=== PATIENT | female | born 1990 | race Caucasian/White ===

== ENCOUNTER 2019-11-13 20:26 | Outpatient (CLI) | payer BC ==
[~2019-11-13] VITALS: Ht 157.5 cm; Wt 82.7 kg
--- NOTE | 2019-11-13 20:10 | NUR ---
2009- PT PRESENTS TO [facility] COMPLAINING OF LEAKING FLUID, AMBULATORY TO ROOM LR3, CHANGED INTO GOWN. 2016- EFM X2 APPLIED, COVID SCREENING NEGATIVE, PT STATES SHE HAS BEEN HAVING SOME INCONSISTENT CONTRACTIONS AND HER PANTIES WERE WET EARLIER, IS NOT CURRENTLY HAVING TO WEAR A PAD. STATES SHE IS FEELING HER BABY MOVE AND DENIES VAGINAL BLEEDING. 2019- AMNITRACE NEGATIVE WITH NO POOLING OF FLUID, SVE BY THIS NURSE 0-/-3. PLAN OF CARE DISCUSSED FOR LABOR CHECK AND EARLY LABOR. QUESTIONS ANSWERED. 2029- NURSING ADMISSION HISTORY AND ASSESSMENT COMPLETE. 2049- DR MORENO CALLED AND UPDATED ON PT HISTORY, COMPLAINT, AMNITRACE, SVE, STRIP INTERPRETATION AND VITAL SIGNS. ORDER FOR LABOR CHECK AND MAY DISMISS TO HOME IF CERVIX UNCHANGED. 2119- SVE BY THIS NURSE UNCHANGED. PLAN OF CARE FOR DISMISSAL DISCUSSED WELL WHEN TO RETURN TO LDR. PT VERBALIZES UNDERSTANDING. 2122- OFF MONITORS FOR DISMISSAL 2135- DISMISSAL INSTRUCTIONS GIVEN AND PT VERBALIZES UNDERSTANDING. PT DISMISSED TO HOME ACCOMPANIED BY SPOUSE.
[2019-11-13 20:30] VITALS: BP 137/71; PULSE 89; TEMP 99.1
[2019-11-13] MEDS ORDERED: PRENATAL VITAMI1 TA3 PO (20:38)
[2019-11-13 21:00] VITALS: BP 125/66; PULSE 70
== END 2019-11-13 21:36 | disposition home or self-care (01) ==
LOC: LDRO 20:26 → LDR 20:26 → LDRO 21:36
DX: O42.92 Full-term premature rupture of membranes, unspecified as to length of time between rupture and onset of labor (principal); Z3A.38 38 weeks gestation of pregnancy
CPT/HCPCS: OP

== ENCOUNTER → 2019-11-28 | Outpatient (CLI) | payer BC ==
[~2019-11-28] MED LIST: IBU800 M1 PO; PERCOCET 325 MG1 TA2 PO; PRENATAL VITAMI1 TA3 PO
--- NOTE | 2019-11-28 16:17 | NUR ---
Pt, Katty Mc, presents for outpatient consult with 3 day old baby girl, Zana Mc, for assistance r/t poor latching. She is also accompanied her her spouse, Coy Mc. Zana was born by c/section on [birth year] and weighed 7#11.5oz (3500 gms). She was assisted by staff with over the weekend and has utilized SNS because Zana was not nursing well prior to discharge yesterday. She has also supplemented by bottle when Zana was not latching well and could not use SNS. Volumes are between 24 and 30 ml per feeding. Pt contacted this LC today and she was advised to start pumping after to ensure milk production. She has pumped x2 prior to this consult and collected 20ml each time, which was used for supplement. Today Zana weighs 7#2.7oz (3252 gms), slightly above her discharge weight of 7#2.3oz (3240 gms). Pt indicates Zana has stools and voids, but stools may be a little low as she had mec fluid prior to . At this feeding pt is advised on support of baby and breast, angles to help get nipple deeper into Zana's mouth and pulling her quickly to breast when she opens. We did utilize a few gtts of formula over the nipple to help Zana focus. Pt still awkward aligning baby and breast and getting the right angle to help Zana feel the nipple deeply in her mouth. After nursing about 15 min on the left and 7 on the right Zana had a total weight gain of 10gms. She was supplemented by bottle and took about 20ml. POC: 3 step feeding plan with , supplementing and pumping. Provide about 20ml supplement of EBM or formula after and continue to pump after feedings until latching and transfer improve. Discussed weaning or increasing supplement over the next 48 hours based on how feedings and milk supply improve. F/U: Zana has her first appointment with Dr. Gerardo in two days, ThursdayNovember 29. Pt is to report feeding progress and Zana's weight after that and follow up consultation will be determined based on progress. Questions invited and answered.
== END ==
LOC: LAC 15:02
DX: Z39.1 Encounter for care and examination of lactating mother (principal); Z71.89 Other specified counseling

== ENCOUNTER 2022-09-11 10:07 | Inpatient (IN) | payer BC ==
[2022-09-11] VITALS (13 sets, daily range): BP systolic 93–118; BP diastolic 49–86; PULSE 63–89; TEMP 97.9–98.4
[~2022-09-11] VITALS: Ht 157.6 cm; Wt 82.1 kg
--- NOTE | 2022-09-11 10:30 | NUR ---
1030 PT ARRIVED ON UNIT WITH SUPPORT PERSON. PT CHANGED INTO GOWN AND WAS COMFORTABLE IN BED. PT REPORTS NO LOF, FEW CTX, AND POSITIVE MOVEMENT. DISCUSSED POC WITH PT, IV STARTED, LABS DRAWN AND SENT.
[2022-09-11 11:22] LABS: BASO % 0.3 % (0.0-2.0); EOS # 0.1 K/mm3 (0.0-0.7); EOS % 0.8 % (0.0-4.0); GRAN # 5.7 K/mm3 (1.4-6.5); HEMATOCRIT 38.1 % (37.0-47.0); HEMOGLOBIN 13.5 g/dl (12.5-16.0); LYMPH # 1.6 K/mm3 (1.2-3.4); LYMPH % 20.5 % (20.0-51.0); MEAN CELL VOLUME 87 fl (80.0-100.0); MEAN CORPUSCULAR HEMOGLOBIN 31 pg (27-31); MEAN CORPUSCULAR HGB CONC 35 g/dl (33.0-37.0); MONO # 0.5 K/mm3 (0.1-0.6); MONO % 6.6 % (1.7-9.3); PLATELET COUNT 258 K/mm3 (130-400); RED BLOOD COUNT 4.36 M/mm3 (4.10-5.30); REDCELL DISTRIBUTION WIDTH-CV 13.2 % (11.5-14.5)
[2022-09-11] MEDS ORDERED: SINGULAIR 110 MG/TAB PO (12:03)
[2022-09-11] MEDS ORDERED: SINGULAIR 4MG CH4 MG PO (12:04)
[2022-09-11 12:26] LABS: TRICYCLIC ANTIDEPRESS URINE NEGATIVE
[2022-09-12 03:30] VITALS: BP 114/68; PULSE 74; TEMP 98.2
[2022-09-12 08:00] VITALS: BP 111/67; PULSE 77; TEMP 98.3
[2022-09-12] MEDS ORDERED: PERCOCET 325 MG1 TA2 PO (09:11)
[2022-09-12] MEDS ORDERED: IBU800 M1 PO (09:11)
--- NOTE | 2022-09-12 09:26 | NUR ---
Initial visit; Parents thanked [employer]ning [employer] T[employer] for offering congratulations and God's blessings for the of their daughter. [employer]ning Machine Tender offered "Special Blessings" for their daughter and presented the family with a [place] Card. Family thanked [employer].
--- NOTE | 2022-09-12 10:42 | NUR ---
SW consulted to meet with MOB due to HX of THC use. MOB verbalizes that she used recreationally prior to getting . Patient had negative UDS during care and was negative at delivery. negative as well. Patient currently works and is planning on returning to work. This is her second child and has all basic care needs for . Patient verbalizes that her only concern is breast feeding but has a plan to meet with hospitals it sales consultant and is aware that the [facility] has supports as well.
[2022-09-12 17:00] VITALS: BP 108/60; PULSE 72; TEMP 98.2
[2022-09-12 20:30] VITALS: BP 114/65; PULSE 76; TEMP 98.5
[2022-09-13 07:00] VITALS: BP 113/82; PULSE 80; TEMP 97.8
== END 2022-09-13 12:08 | disposition home or self-care (01) | DRG 788 ==
LOC: OB 10:07
PROVIDERS: ADMIT Student in an Organized Health Care Education/Training Program
PROC: 10D00Z1 Extraction of Products of Conception, Low, Open Approach (ICD-10-PCS; principal; 2022-09-11)
DX: O34.211 Maternal care for low transverse scar from previous cesarean delivery (principal); Z3A.39 39 weeks gestation of pregnancy; Z37.0 Single live birth; J30.2 Other seasonal allergic rhinitis; O99.52 Diseases of the respiratory system complicating childbirth; K21.9 Gastro-esophageal reflux disease without esophagitis; O99.62 Diseases of the digestive system complicating childbirth; O36.63X0 Maternal care for excessive fetal growth, third trimester, not applicable or unspecified; Z23 Encounter for immunization
CPT/HCPCS: J0690; J1100; J1885; J2405; J2590; J7120